=== PATIENT | male | born 1995 | race Caucasian/White ===

== ENCOUNTER 2017-11-25 03:06 | Emergency (ER) | payer OTHER ==
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
[2017-11-25] MEDS: Ketorolac 60 MG/2 ML SDV IM ONE ×2 (04:21→04:24)
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
== END 2017-11-25 05:50 | disposition home or self-care (01) ==
LOC: MW.ED 03:06
DX: S16.1XXA Strain of muscle, fascia and tendon at neck level, initial encounter (principal); S20.211A Contusion of right front wall of thorax, initial encounter; M54.9 Dorsalgia, unspecified; V48.6XXA Car passenger injured in noncollision transport accident in traffic accident, initial encounter
CPT/HCPCS: 71111; 71111-26; 72125; 72125-26; 72128; 72128-26; 72131; 72131-26; 99283; 99284-25; J1885

== ENCOUNTER 2018-06-30 20:29 | Emergency (ER) | payer BC, OTHER ==
[2018-06-30] MEDS ORDERED: Ketorolac 60 MG/2 ML SDV IM ONE (20:58)
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
== END 2018-06-30 21:20 | disposition home or self-care (01) ==
LOC: MW.ED 20:29
DX: M25.511 Pain in right shoulder (principal)
CPT/HCPCS: 96372; 99283; J1885